=== PATIENT | female | born 1985 | race Caucasian/White ===

== ENCOUNTER 2017-12-05 11:40 | Observation (INO) | payer OTHER ==
[~2017-12-05] VITALS: Ht 160 cm; Wt 87.5 kg
[2017-12-05 11:57] VITALS: BP 154/85
[2017-12-05 12:33] LABS: BASOPHILS % (AUTO) 0.7 % (0.0-2.0); EOSINOPHILS % (AUTO) 0.4 % (1.0-6.0); HEMOGLOBIN 12.5 g/dL (12.0-16.0); LYMPHOCYTES # (AUTO) 1.7 K/uL (1.0-4.8); LYMPHOCYTES % (AUTO) 13.9 % (22.0-44.0); MEAN CORPUSCULAR HGB CONC 34.7 G/dL (31.0-37.0); MEAN CORPUSCULAR VOLUME 86 fL (80-100); MONOCYTES # (AUTO) 0.7 K/uL (0.1-1.0); MONOCYTES % (AUTO) 5.5 % (2.0-9.0); NEUTROPHILS # (AUTO) 9.8 K/uL (1.8-7.7); NEUTROPHILS % (AUTO) 79.5 % (40.0-70.0); PLATELET COUNT (AUTO) 213 K/uL (150-450); RED BLOOD CELL COUNT(AUTO) 4.16 MIL/uL (4.00-5.20); RED CELL DISTRIBUTION WIDTH 13.2 % (11.5-14.5)
[2017-12-05 12:35] LABS: ANION GAP 10 mmol/L (8-16); CALCIUM, TOTAL 8.4 mg/dL (8.8-10.5); CARBON DIOXIDE 22 mmol/L (22-29); CHLORIDE 101 mmol/L (98-107); CREATININE 0.67 mg/dL (0.60-1.30); GLOMERULAR FILTR. RATE CALC > 60 mL/min (>60); GLUCOSE,RANDOM 79 mg/dL (70-110); POTASSIUM 4.3 mmol/L (3.5-5.1); SODIUM SERUM 133 mmol/L (136-145); UREA NITROGEN, BLOOD 14 mg/dL (7-18)
[2017-12-05 12:50] LABS: ALANINE AMINOTRANSFERASE 27 U/L (12-78); ALBUMIN 2.5 g/dL (3.4-5.0); ALKALINE PHOSPHATASE 101 U/L (46-116); ASPARTATE AMINOTRANSFERASE 26 U/L (15-37); BILIRUBIN,TOTAL 0.3 mg/dL (0.1-1.0); FREE T4 (FREE THYROXINE) 0.74 ng/dL (0.76-1.46); THYROID STIMULATING HORMONE 5.45 uIU/mL (0.36-3.74); TOTAL PROTEIN, SERUM 6.6 g/dL (6.4-8.2)
[2017-12-05 12:55] LABS: URIC ACID < 1.0 mg/dL (2.6-7.2)
[2017-12-05] MEDS ORDERED: NIFEdipine 10 MG CAPSULE PO ONE ×2 (13:00→19:30)
[2017-12-05] MEDS ORDERED: BETAMETHASONE SOLUSPAN 6 MG/ML 5 ML VIAL IM ONE (18:30)
[2017-12-05] MEDS ORDERED: ACETAMINOPHEN 325 MG TABLET PO PRN (18:30)
[2017-12-05] MEDS ORDERED: METHYLDOPA 250 MG TABLET PO SCH (20:00)
[2017-12-06] MEDS: NIFEdipine 10 MG CAPSULE PO SCH ×3 (00:09→07:53)
[2017-12-06 00:34] LABS: TPROTEIN TIMED,URINE 15 mg/dL
[2017-12-06 00:36] LABS: COLLECTION TIME,URINE 12 HR; TPROTEIN URINE 12HR CALC 330 mg/12HR (0-165)
[2017-12-06] MEDS ORDERED: METHYLDOPA 250 MG TABLET PO SCH (04:00)
[2017-12-06] MEDS ORDERED: BETAMETHASONE SOLUSPAN 6 MG/ML 5 ML VIAL IM ONE (06:40)
== END 2017-12-06 10:45 | disposition home or self-care (01) ==
LOC: 4S 11:40
PROVIDERS: ADMIT Obstetrics & Gynecology; ATTEND Obstetrics & Gynecology
DX: O13.3 Gestational [pregnancy-induced] hypertension without significant proteinuria, third trimester (principal); O26.893 Other specified pregnancy related conditions, third trimester; R51 Headache; R60.9 Edema, unspecified; Z3A.34 34 weeks gestation of pregnancy
CPT/HCPCS: 36415; 59025 ×2; 80053; 81050; 84156; 84439; 84443; 84550; 85025; 96372 ×2; G0378 ×2; J0702 ×2

== ENCOUNTER 2017-12-07 08:25 | Inpatient (IN) | payer OTHER ==
[~2017-12-07] VITALS: Ht 160 cm; Wt 88.0 kg
[2017-12-07] MEDS ORDERED: OXYTOCIN 30 UNITS/LACT RINGERS 500 ML IV ONE (08:32)
[2017-12-07] MEDS ORDERED: RINGERS SOLUTION,LACTATED 1,000 ML IV PRN (08:32)
[2017-12-07] MEDS ORDERED: METOCLOPRAMIDE HCL 5 MG/ML 2 ML VIAL IVP PRN (08:45)
[2017-12-07] MEDS ORDERED: OXYGEN THERAPY IH SCH (08:45)
[2017-12-07] MEDS ORDERED: METHYLERGONOVINE MALEATE 0.2 MG/ML VIAL IM PRN (08:45)
[2017-12-07] MEDS ORDERED: FentaNYL CITRATE-PF 100 MCG/2 ML VIAL IVP PRN (08:45)
[2017-12-07] MEDS ORDERED: LIDOCAINE HCL/PF 1% 30 ML VIAL INJ PRN (08:45)
[2017-12-07] MEDS ORDERED: CITRIC ACID/SODIUM CITRATE 30 ML SOLUTION UDCUP PO PRN (08:45)
[2017-12-07 09:13] LABS: MEAN CORPUSCULAR HEMOGLOBIN 29.7 pg (26.0-34.0); MEAN CORPUSCULAR HGB CONC 34.1 G/dL (31.0-37.0); MEAN CORPUSCULAR VOLUME 87 fL (80-100); PLATELET COUNT (AUTO) 226 K/uL (150-450); RED BLOOD CELL COUNT(AUTO) 4.37 MIL/uL (4.00-5.20); RED CELL DISTRIBUTION WIDTH 13.4 % (11.5-14.5)
[2017-12-07] MEDS: RINGERS SOLUTION,LACTATED 1,000 ML IV SCH ×2 (09:13→20:25)
[2017-12-07] MEDS ORDERED: NIFEdipine 10 MG CAPSULE PO ONE ×2 (10:00→13:30)
[2017-12-07] MEDS ORDERED: MAGNESIUM SULFATE 2 GM/WATER 50 ML IV ONE (10:00)
[2017-12-07] MEDS ORDERED: MISOPROSTOL 25 MCG TABLET VG SCH (10:00)
[2017-12-07] MEDS ORDERED: CALCIUM GLUCONATE 100 MG/ML 10 ML IVP PRN (10:00)
[2017-12-07 10:06] LABS: BAND NEUTROPHILS % (MANUAL) 3 % (0-5); LYMPHOCYTES % (MANUAL) 15 % (22-44); METAMYELOCYTES % 2 % (0-0); MONOCYTES % (MANUAL) 7 % (2-9); SEGMENTED NEUTROPHILS % 73 % (40-70)
[2017-12-07] MEDS: MAGNESIUM SULFATE 500 ML IV SCH ×2 (10:45→19:41)
[2017-12-07] MEDS ORDERED: MISOPROSTOL 25 MCG TABLET VG ONE ×3 (13:15→22:00)
[2017-12-07] MEDS ORDERED: AMPICILLIN SODIUM 2 GM/NS 100 ML IV ONE (15:45)
[2017-12-07] MEDS: NIFEdipine 10 MG CAPSULE PO PRN ×2 (17:09→20:25)
[2017-12-07] MEDS ORDERED: ACETAMINOPHEN 500 MG TABLET PO PRN (19:00)
[2017-12-07] MEDS ORDERED: ROPIVACAINE HCL/PF 0.2% 100 ML ED ONE (20:28)
[2017-12-07] MEDS ORDERED: ROPIVACAINE HCL/PF 0.2% 100 ML ED PRN (20:51)
[2017-12-07] MEDS ORDERED: DiphenhydrAMINE HCL 50 MG/ML VIAL IVP PRN (21:00)
[2017-12-07] MEDS ORDERED: ONDANSETRON HCL 4 MG/2 ML VIAL IVP PRN (21:00)
[2017-12-07] MEDS ORDERED: MAGNESIUM SULFATE 500 ML IV SCH (22:42)
[2017-12-08 00:54] VITALS: BP 119/58
[2017-12-08] MEDS: AMPICILLIN SODIUM 1 GM/NS 50 ML IV SCH ×3 (01:36→09:46)
[2017-12-08] MEDS ORDERED: OXYTOCIN 30 UNITS/LACT RINGERS 500 ML IV PRN (02:48)
[2017-12-08] MEDS: NIFEdipine 10 MG CAPSULE PO PRN (04:28)
[2017-12-08] MEDS ORDERED: ROPIVACAINE HCL/PF 0.2% 100 ML ED ONE ×2 (04:48→13:24)
[2017-12-08] MEDS: RINGERS SOLUTION,LACTATED 1,000 ML IV SCH (09:46)
[2017-12-08] MEDS ORDERED: HydrALAZINE HCL 20 MG/ML VIAL IVP SCH (12:00)
[2017-12-08] MEDS ORDERED: BENZOCAINE 20%/MENTHOL 56 GM SPRAY CANISTER TP PRN (14:30)
[2017-12-08] MEDS ORDERED: GLYCERIN/WITCH HAZEL LEAF 40 PADS JAR TP PRN (14:30)
[2017-12-08] MEDS ORDERED: LANOLIN 7 GM OINTMENT TP PRN (14:30)
[2017-12-08] MEDS ORDERED: ACETAMINOPHEN/CODEINE 300-30 MG TABLET PO PRN (14:30)
[2017-12-08] MEDS: ACETAMINOPHEN/CODEINE 300-30 MG TABLET PO PRN ×2 (14:56→20:05)
[2017-12-08] MEDS: IBUPROFEN 800 MG TABLET PO SCH (17:51)
[2017-12-08] MEDS: METHYLDOPA 250 MG TABLET PO SCH (19:33)
[2017-12-08] MEDS ORDERED: MAGNESIUM HYDROXIDE SUSPENSION 30 ML UDCUP PO SCH (21:00)
[2017-12-09] MEDS: IBUPROFEN 800 MG TABLET PO SCH ×2 (00:27→07:23)
[2017-12-09] MEDS: METHYLDOPA 250 MG TABLET PO SCH ×2 (01:17→07:55)
[2017-12-09] MEDS ORDERED: SENNA/DOCUSATE SODIUM 187-50 MG TABLET PO ONE (07:45)
[2017-12-09] MEDS ORDERED: IBUP-2071 PO (08:08)
[2017-12-09] MEDS ORDERED: NIFEdipine 10 MG CAPSULE PO ONE (13:00)
== END 2017-12-09 14:45 | disposition home or self-care (01) | DRG 775 ==
LOC: 4S 08:25 → OBSVTOIN 08:25
PROVIDERS: ADMIT Obstetrics & Gynecology; ATTEND Obstetrics & Gynecology
PROC: 10E0XZZ Delivery of Products of Conception, External Approach (ICD-10-PCS; principal; 2017-12-07)
PROC: 10907ZC Drainage of Amniotic Fluid, Therapeutic from Products of Conception, Via Natural or Artificial Opening (ICD-10-PCS; 2017-12-07)
PROC: 0UQMXZZ Repair Vulva, External Approach (ICD-10-PCS; 2017-12-07)
PROC: 3E0R3BZ Introduction of Anesthetic Agent into Spinal Canal, Percutaneous Approach (ICD-10-PCS; 2017-12-07)
PROC: 00HU33Z Insertion of Infusion Device into Spinal Canal, Percutaneous Approach (ICD-10-PCS; 2017-12-07)
DX: O13.4 Gestational [pregnancy-induced] hypertension without significant proteinuria, complicating childbirth (principal); O71.82 Other specified trauma to perineum and vulva; O14.14 Severe pre-eclampsia complicating childbirth; Z3A.34 34 weeks gestation of pregnancy; Z37.0 Single live birth
CPT/HCPCS: 83735; 86850; 86900; 86901; J0290; J0360; J2590; J2795; J3475; J7120